=== PATIENT | male | born 1950 | race Caucasian/White ===

== ENCOUNTER → 2018-02-22 | Outpatient (CLI) | payer MEDICARE, OTHER ==
[~2018-02-22] MED LIST: AMOX TR-K CLV1 EAC3 PO; AMOX TR-K CLV1 EAC4; CIPROFLOXACIN500 M1 PO; FLAGYL500 MG PO; FLOMAX PO; GABAPENTIN100 MG; GLUCOPHAGE500 MG; HYDROCODON-ACE1 EAC7 PO; LISINOPRIL5 MG; NEXIUM; NORCO 5-325 TA1 EACH PO; ZOFRAN4 MG PO
== END ==
LOC: M.RAD 16:43
DX: J20.9 Acute bronchitis, unspecified (principal)

== ENCOUNTER 2018-07-17 11:57 | Emergency (ER) | payer MEDICARE, OTHER ==
[~2018-07-17] VITALS: Ht 170.2 cm; Wt 97.5 kg
[2018-07-17] MEDS ORDERED: GABAPENTIN 100100 MG PO (12:13)
[2018-07-17] MEDS ORDERED: NEXIUM40 MG PO (12:13)
[2018-07-17] MEDS ORDERED: MYRBETRIQ50 MG PO (12:13)
[2018-07-17] MEDS ORDERED: LOVAZA1000 MG PO (12:13)
[2018-07-17] MEDS ORDERED: LISINOPRIL5 MG PO (12:14)
[2018-07-17 12:43] LABS: ABSOLUTE EOSINOPHILS 0.2 thou/uL (0.0-0.7); ABSOLUTE LYMPHOCYTES 1.7 thou/uL (0.8-5.3); ABSOLUTE MONOCYTES 0.9 thou/uL (0.0-1.2); ABSOLUTE NEUTROPHILS 5.5 thou/uL (1.6-8.1); BASOPHILS 0.2 %; EOSINOPHILS 2.8 %; HEMATOCRIT 42.2 % (42.0-52.0); HEMOGLOBIN 14.1 gm/dL (14.0-18.0); LYMPHOCYTES 20.6 %; MCH 30.2 pg (26.0-34.0); MCHC 33.4 g/dL (28.0-37.0); MCV 90.3 fL (80.0-100.0); MONOCYTES 10.6 %; MPV 6.8 fl. (7.2-11.1); NUCLEATED RBCS 0 /100WBC; PLATELET COUNT* 318 thou/uL (150-400); POLYS 65.8 %; RBC 4.68 mil/uL (4.50-6.00); RDW-CV 12.7 % (10.5-14.5); WBC 8.3 thou/uL (4.0-11.0)
[2018-07-17 12:50] LABS: ANION GAP 9 mmol/L (7-16); BUN 20 mg/dL (7-18); CALCIUM 9.2 mg/dL (8.5-10.1); CHLORIDE 102 mmol/L (98-107); CO2 25 mmol/L (21-32); CREATININE 1.1 mg/dL (0.6-1.3); GLUCOSE 200 mg/dL (70-99); POTASSIUM 4.3 mmol/L (3.5-5.1); SODIUM 136 mmol/L (136-145)
[2018-07-17 12:51] LABS: APTT 33.6 Seconds (25.0-31.3); PROTIME 10.2 Seconds (9.20-11.50)
[2018-07-17 13:02] LABS: ALBUMIN 3.7 g/dL (3.4-5.0); ALKALINE PHOSPHATASE 84 U/L (46-116); NT-PRO BRAIN NAT PEPTIDE 22 pg/mL (<300); SGOT 19 U/L (15-37); SGPT 46 U/L (30-65); TOTAL BILIRUBIN 0.3 mg/dL (<0.1-1.0); TROPONIN-I LEVEL <0.06 ng/mL (<0.06)
[2018-07-17 13:23] VITALS: BP 126/74
--- NOTE | 2018-07-19 16:52 | EKG ---
[place] [address] ELECTROCARDIOGRAM REPORT Name: ROX BACK [id number] Admission: 07/17/18 Attend Phys: Discharge: 07/17/18 Date of : 50 Report #: [id number] THIS REPORT FOR: //name// [facility] ED Test Date: 2018-07-17 Test Time: 12:03:43 Pat Name: ROX BACK Department: Room: Gender: M Counselor At [employer]: WOODY : 1950 Requested By: Anupam Saravia Order Number: [id number] : Stephan Kaiser Measurements Intervals [place] Rate: 61 P: 29 MO: 226 QRS: -35 QRSD: 131 T: 3 QT: 396 QTc: 399 Interpretive Statements Sinus rhythm Prolonged MO interval Right bundle branch block Inferior infarct, old No previous ECG available for comparison Electronically Signed On 07-19-2018 16:52:42 CDT by Stephan Kaiser [email or web address] <ELECTRONICALLY SIGNED> By: Stephan Kaiser MD, [facility] 07/19/18 1652 1203 1203 Stephan Kaiser MD, FACC /EPI
== END 2018-07-17 13:24 | disposition home or self-care (01) ==
LOC: M.ERS 11:57
PROVIDERS: Family Medicine
DX: R51 Headache (principal); R42 Dizziness and giddiness; I10 Essential (primary) hypertension; E11.9 Type 2 diabetes mellitus without complications

== ENCOUNTER → 2018-12-13 | Outpatient (CLI) | payer MEDICARE, OTHER ==
[~2018-12-13] MED LIST changes: +GABAPENTIN 100100 MG PO; +LISINOPRIL5 MG PO; +LOVAZA1000 MG PO; +MYRBETRIQ50 MG PO; +NEXIUM40 MG PO
[2018-12-13 10:09] LABS: URINE BLOOD NEGATIVE (Negative); URINE CLARITY CLEAR; URINE COLOR YELLOW; URINE GLUCOSE-RANDOM NEGATIVE (Negative); URINE KETONES 1+ (Negative); URINE LEUKOCYTES-REFLEX NEGATIVE (Negative); URINE PROTEIN 2+ (Negative); URINE SPECIFIC GRAVITY >= 1.030 (1.005-1.030)
[2018-12-13 10:12] LABS: ICTOTEST (BILI CONFIRMATORY) Negative (Negative); URINE BILIRUBIN 2+ (Negative); URINE NITRITE-REFLEX POSITIVE (Negative)
[2018-12-13 10:13] LABS: ABSOLUTE BASOPHILS 0.1 thou/uL (0.0-0.2); ABSOLUTE EOSINOPHILS 0.1 thou/uL (0.0-0.7); ABSOLUTE LYMPHOCYTES 1.4 thou/uL (0.8-5.3); ABSOLUTE MONOCYTES 1.9 thou/uL (0.0-1.2); ABSOLUTE NEUTROPHILS 9.2 thou/uL (1.6-8.1); BASOPHILS 0.8 %; EOSINOPHILS 0.9 %; HEMATOCRIT 44.5 % (42.0-52.0); HEMOGLOBIN 14.9 gm/dL (14.0-18.0); LYMPHOCYTES 10.7 %; MCH 30.3 pg (26.0-34.0); MCHC 33.6 g/dL (28.0-37.0); MCV 90.3 fL (80.0-100.0); MONOCYTES 14.9 %; MPV 6.6 fl. (7.2-11.1); NUCLEATED RBCS 0 /100WBC; PLATELET COUNT* 400 thou/uL (150-400); POLYS 72.7 %; RBC 4.93 mil/uL (4.50-6.00); RDW-CV 13.6 % (10.5-14.5); WBC 12.7 thou/uL (4.0-11.0)
[2018-12-13 10:20] LABS: BACTERIA-REFLEX 1-9 Few /HPF (None Seen); SQUAMOUS 0-3 Few /LPF (0-3); URINE RBC 0-2 Rare /HPF (0-2); URINE WBC-REFLEX 0-5 Rare /HPF (0-5)
[2018-12-13 10:21] LABS: CRYSTALS None Seen /LPF (None Seen); FINE GRANULAR CASTS 0-3 Few /LPF (None Seen); HYALINE CASTS 4-10 Moderate /LPF (None Seen); MUCUS 4-6 Moderate strn/LPF (None Seen)
[2018-12-13 10:25] LABS: ALBUMIN 3.8 g/dL (3.4-5.0); CALCIUM 9.8 mg/dL (8.5-10.1); CREATININE 1.3 mg/dL (0.6-1.3); POTASSIUM 4.2 mmol/L (3.5-5.1); TOTAL BILIRUBIN 0.9 mg/dL (<0.1-1.0); TOTAL PROTEIN 7.9 g/dL (6.4-8.2)
== END ==
LOC: M.CT 09:47
PROVIDERS: Family Medicine
DX: N20.0 Calculus of kidney (principal); K57.92 Diverticulitis of intestine, part unspecified, without perforation or abscess without bleeding